=== PATIENT | female | born 1960 | race Caucasian/White ===

== ENCOUNTER 2021-02-27 07:33 | Outpatient (REF) | payer OTHER, SELFPAY ==
--- NOTE | 2021-03-02 08:14 | MHC.AU.ANO ---
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 Renata reports she is asking others to repeat what was said more often and frequently misunderstands what was said; particularly at work, when people are speaking from a distance, or when background noise is present. Does patient feel they have a hearing loss?: Yes If Yes, Which Ear?: Both Ears Has hearing been tested previously?: No Hearing Handicap Inventory: HHIE SCORE: 26 Based on HHIE score, patient has: Severe perceived hearing handicap Ear History: Family History of Hearing Loss?: Yes Mother Bothersome Tinnitus/Ringing/Noises in Ears: Both Ears Ear used on the phone: Right Ear Blocked/Full Sensation in Ear(s): Both Ears History of occupational noise exposure?: No History: History: No Medical History: Medical History: High Blood Pressure, Thyroid Disease, Pre-Diabetes Allergies: Penicillin Medication List: Euthyrox, Metformin, Losartan/HCTZ, Atorvastatin, Metoprolol, Bupropion XL, Montellukast Otoscopy: Right Ear: Unremarkable Left Ear: Unremarkable Tympanometry: Tympanometry performed due to: To assess integrity of the middle ear system Right Ear: Normal Middle Ear System (Type A) Left Ear: Normal Middle Ear System (Type A) Otoacoustic Emissions Frequency Range Used: 1.6-8 kHz Right Ear Results: Present 7215-3044 Hz, Reduced 5000 Hz, Absent 7224-6133 Hz Analysis: Reduced/Absent emissions suggest cochlear dysfunction Results are consistent with degree and configuration of hearing loss Left Ear Results: Present 5004-5827 Hz, Absent 5541-0912 Hz. Analysis: Reduced/Absent emissions suggest cochlear dysfunction Results are consistent with degree and configuration of hearing loss Hearing Evaluation: Transducer(s) Used: Insert Earphones Bone Conduction Method: Conventional Audiometry Stimuli Used: Pure Tones Right Ear: Description of Hearing: Normal to borderline normal hearing thresholds 250-4000 Hz, sloping to a moderate high frequency sensorineural hearing loss. Left Ear: Description of Hearing: Normal hearing levels 250-1000 Hz, sloping to a moderate high frequency sensorineural hearing loss. Speech Recognition Threshold (SRT): Method Used: Monitored Live Voice Stimuli Used: Spondee Words Right Ear: 20 dB HL Left Ear: 20 dB HL Word Discrimination: Method: Recorded Lists Word Lists Used: NU-6 Right Ear: 96% at 60 dB HL Left Ear: 96% at 60 dB HL QuickSIN: Binaural Quick SIN Test: 3 dB SNR Loss suggesting Renata experiences a mild degree of difficulty understanding speech with increasing levels of background noise in this controlled test environment. Real world listening situations are likely to be more difficult. Recommendations: - Discussed and provided a handout regarding Communication Strategies to use to improve speech understanding as much as possible. - Discussed possible trial with hearing aids if difficulty continues. Provided [facility] information and advised Renata to contact her insurance to determine her hearing aid benefits. - If Renata would like to pursue hearing aid trial at this office within the next 6 months, she may schedule a Hearing Aid Evaluation appointment. - Audiological re-evaluation in one year. Will send a reminder card. Diagnosis: Primary Diagnosis: H90.3 Bilateral Sensorineural Hearing Loss Services Performed: Comprehensive Audiological Evaluation (CPT 08714) Diagnostic Otoacoustic Emissions (CPT 53255, 26+TC) Tympanometry (CPT 04060) Signature: Provider: Mirna Cao, CCC-A
== END 2021-02-27 07:34 | disposition home or self-care (01) ==
LOC: HO.SH 07:33
PROVIDERS: Visit Provider Hospitalist
DX: H90.3 Sensorineural hearing loss, bilateral (principal)
CPT/HCPCS: 92557; 92567; 92588